=== PATIENT | female | born 1995 | race Two or more races ===

== ENCOUNTER 2024-08-18 18:48 | Emergency (ER) | payer OTHER, SELFPAY ==
--- NOTE | ~2024-08-18 | XR_ITS ---
EXAMINATION: XR LUMBAR SPINE. XR FEMUR, RIGHT. CLINICAL INFORMATION: Fall with pain COMPARISON: None. TECHNIQUE: 3 views of the lumbar spine. AP and lateral views of the right femur. FINDINGS: Lumbar spine: Normal alignment and lumbar lordosis. No fracture. No degenerative findings. Right femur: No fracture. XR/XR femur RT 2V IMPRESSION: LUMBAR SPINE: Normal. RIGHT FEMUR: Normal. Electronically signed by: Radames Argueta MD 08/18/2024 09:22 PM [facility]
--- NOTE | ~2024-08-18 | XR_ITS ---
EXAMINATION: XR LUMBAR SPINE. XR FEMUR, RIGHT. CLINICAL INFORMATION: Fall with pain COMPARISON: None. TECHNIQUE: 3 views of the lumbar spine. AP and lateral views of the right femur. FINDINGS: Lumbar spine: Normal alignment and lumbar lordosis. No fracture. No degenerative findings. Right femur: No fracture. XR/XR lumbar spine 2-3V IMPRESSION: LUMBAR SPINE: Normal. RIGHT FEMUR: Normal. Electronically signed by: Radames Argueta MD 08/18/2024 09:22 PM [facility]
[2024-08-18 19:21] VITALS: BP 146/75; PULSE 97; RESP 18; TEMP 36.9; O2SAT 98; BMI 32.6
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
[2024-08-19 00:22] VITALS: BP 120/83; PULSE 83; RESP 16; TEMP 36.6; O2SAT 99
[2024-08-19] MEDS: Ibuprofen 600 MG TABLET PO (00:52)
[2024-08-19 01:09] VITALS: BP 120/83; PULSE 83; RESP 16; TEMP 36.6; O2SAT 99
== END 2024-08-19 01:12 | disposition home or self-care (01) ==
PROVIDERS: Emergency Provider Emergency Medicine
DX: S70.11XA Contusion of right thigh, initial encounter (principal); W50.0XXA Accidental hit or strike by another person, initial encounter; M79.651 Pain in right thigh; M54.50 Low back pain, unspecified; Y93.89 Activity, other specified; Y92.009 Unspecified place in unspecified non-institutional (private) residence as the place of occurrence of the external cause; Y99.9 Unspecified external cause status
CPT/HCPCS: 72100; 73552; 99283; 99284